=== PATIENT | female | born 1970 ===

== ENCOUNTER 2017-09-26 13:52 | Emergency (ER) | payer MEDICAID ==
[2017-09-26] MEDS ORDERED: Lidocaine 1% Inj (20ml) INFIL STA (14:20)
[2017-09-26 14:27] VITALS: BP 102/67; PULSE 63; RESP 14; TEMP 98; O2SAT 98
[2017-09-26] MEDS ORDERED: Lidocaine 2% MPF (5 ml) Inj ONE (14:34)
--- NOTE | 2017-09-26 14:38 | C.PDOC ---
History Of Present Illness 47 y/o female presents to the ER after a laceration to the left hand second digit that occurred a few hours ago. She explained she was cooking with a sharp knife at home when the laceration occurred. The patient denies any weakness, numbness or tingling. She offers no other medical complaints at this time. Time Seen by Provider: 09/26/17 14:17 Chief Complaint (Nursing): Abnormal Skin Integrity History Per: Patient History/Exam Limitations: no limitations Onset/Duration Of Symptoms: Hrs Current Symptoms Are (Timing): Still Present Location Of Injury: Left: Hand (second digit) Past Medical History Vital Signs: Last Vital Signs Temp 98.0 F 09/26/17 13:56 Pulse 63 09/26/17 13:56 Resp 14 09/26/17 13:56 BP 102/67 09/26/17 13:56 Pulse Ox 98 09/26/17 15:36 Family History: States: Unknown Family Hx - Social History Hx Alcohol Use: No Hx Substance Use: No - Immunization History Hx Tetanus Toxoid Vaccination: No Hx Influenza Vaccination: No Hx Pneumococcal Vaccination: No Review Of Systems Except As Marked, All Systems Reviewed And Found Negative. Constitutional: Negative for: Fever Gastrointestinal: Negative for: Nausea, Vomiting Skin: Positive for: Lesions (laceration to left finger) Neurological: Negative for: Weakness, Numbness, Other (tingling ) Physical Exam - Physical Exam Appears: Well, Non-toxic, No Acute Distress Skin: Normal Color, Warm, Dry Head: Atraumatic, Normacephalic Eye(s): bilateral: PERRL, EOMI Ear(s): Bilateral: Normal Oral Mucosa: Moist Neck: Normal ROM, Supple Chest: Symmetrical Cardiovascular: Rhythm Regular, No Murmur Respiratory: Normal Breath Sounds, No Rales, No Rhonchi, No Wheezing Gastrointestinal/Abdominal: Bowel Sounds, Soft, No Tenderness Extremity: Normal ROM Extremity: Left: Other (.5 x .5 avulsion of finger ), Bilateral: Normal Color And Temperature, Normal ROM Pulses: Left Radial: Normal, Right Radial: Normal Neurological/Psych: Oriented x3, Normal Speech Gait: Steady ED Course And Treatment O2 Sat by Pulse Oximetry: 98 (RA) Pulse Ox Interpretation: Normal Medical Decision Making Medical Decision Making: Impression: 47 y/o female with laceration to left hand, second digit Plan: --Lidocaine 1% 20ml ordered for digital block of left 2nd digit small fingertip avulsion, nothing to suture digital block for hemostasis, comfort and to wrap Disposition Doctor Will See Patient In The: Office Counseled Patient/Family Regarding: Studies Performed, Diagnosis, Need For Followup - Disposition Referrals: [facility] [Outside] [facility]Outside[email or web address] Disposition: HOME/ ROUTINE Disposition Time: 14:39 Condition: GOOD Additional Instructions: mantiene elevado (mas arriba que tu diann) para parar el sangramiento. despues de 2 brown llava con agua y jabon diario y mantiene seco y limpio Sigue en la [facility]- gratis- srinivas necessario. Instructions: Common Finger Injuries (DC) Forms: [facility] (Divehi) Print Language: JAPANESE - Clinical Impression Clinical Impression: Laceration of finger - Scribe Statement The provider has reviewed the documentation as recorded by the Scribe (Liliana Rich) Provider Attestation: All medical record entries made by the Scribe were at my direction and personally dictated by me. I have reviewed the chart and agree that the record accurately reflects my personal performance of the history, physical exam, medical decision making, and the department course for this patient. I have also personally directed, reviewed, and agree with the discharge instructions and disposition.
[2017-09-26] MEDS ORDERED: Bacitracin 500 Units/gm Oint Foilpak UD ONE (14:48)
== END 2017-09-26 15:07 | disposition home or self-care (01) ==
LOC: C.ER 13:52
DX: S61.211A Laceration without foreign body of left index finger without damage to nail, initial encounter (principal); W26.0XXA Contact with knife, initial encounter; Y93.G3 Activity, cooking and baking; Y92.009 Unspecified place in unspecified non-institutional (private) residence as the place of occurrence of the external cause